=== PATIENT | male | born 1960 | race Caucasian/White ===

== ENCOUNTER 2018-03-09 16:52 | Outpatient (CLI) ==
[2018-03-09 17:09] VITALS: BP 125/70; TEMP 98.4
[2018-03-09] MEDS ORDERED: PHENERGAN 25 MG/ML VIAL 25 MG in SODIUM CHLORIDE 50 ML IV STA (17:14)
[2018-03-09] MEDS ORDERED: DEMEROL 25 MG/ML VIAL IVP STA (17:14)
[2018-03-09] MEDS ORDERED: SODIUM CHLORIDE 1,000 ML IV STA ×2 (17:17)
[2018-03-09] MEDS ORDERED: SODIUM CHLORIDE 1,000 ML IV SCH (17:30)
== END 2018-03-09 16:53 | disposition home or self-care (01) ==
LOC: OPMED 16:52
PROVIDERS: ATTEND Family Medicine
DX: R11.10 Vomiting, unspecified (principal)
CPT/HCPCS: 96361; 96365; 96375